=== PATIENT | male | born 1995 | race Caucasian/White ===

== ENCOUNTER → 2018-09-19 | Outpatient (CLI) | payer MEDICAID ==
--- NOTE | 2018-09-19 12:15 | RADIOLOGY IMAGING REPORT ---
FACILITY: [facility] PATIENT NAME: Scooter Valencia : 1995 MR: [id number] V: [id number] EXAM DATE: ORDERING PHYSICIAN: NIRAJ NOONAN TECHNOLOGIST: Location: [facility] [place] Patient: Scooter Valencia : 1995 Visit/Account:[id number] Date of Sevice: 09/19/2018 EXAMINATION: Right foot series, 3 views 09/19/2018 10:48 AM HISTORY: rt foot contusion COMPARISON: None FINDINGS: There is a prominent ossific center laterally at the base of the fifth metatarsal which ap pears to probably be a prominent os vesalianum. Old nonunited fracture might be a possibility. No a cute bony finding is evident. Articular relationships are well-preserved. IMPRESSION: Chronic ossification center at the base of the fifth metatarsal as discussed above, probably a promin ent accessory ossicle. No acute bony finding in the right foot. Report Dictated By: Franck Del Rio MD at 09/19/2018 12:02 PM Report E-Signed By: Franck Del Rio MD at 09/19/2018 12:10 PM WSN:[id number]
== END ==
LOC: RAD 10:43
PROVIDERS: ATTEND Internal Medicine
DX: S90.31XA Contusion of right foot, initial encounter (principal)